=== PATIENT | female | born 1945 | race Hispanic/Latino ===

== ENCOUNTER 2017-11-16 18:27 | Emergency (ER) | payer MEDICARE, MEDICAID ==
--- NOTE | 2017-11-16 21:02 | RAD ---
TWO VIEWS OF THE CHEST: 11/16/17 COMPARISON: 08/26/11. HISTORY: Sore throat, cough and ear pain. FINDINGS: No pneumothorax, pleural fluid, focal consolidation or alveolar edema. Heart and mediastinal contours appear within normal limits. Postsurgical clips are noted in the right upper quadrant. IMPRESSION: No acute findings. POS: [facility]
== END 2017-11-16 21:30 | disposition home or self-care (01) ==
LOC: ERS 18:27
DX: J06.9 Acute upper respiratory infection, unspecified (principal); Z86.718 Personal history of other venous thrombosis and embolism; E11.9 Type 2 diabetes mellitus without complications; I10 Essential (primary) hypertension
CPT/HCPCS: 71046

== ENCOUNTER 2018-11-22 11:20 | Emergency (ER) | payer MEDICARE, OTHER ==
[2018-11-22] MEDS ORDERED: Ketorolac Tromethamine 30 MG/ML VIAL ONE (11:52)
[2018-11-22 12:14] LABS: #Basophils 0.1 thou/uL (0.0-0.2); #Eosinphils 0.3 thou/uL (0.0-0.7); #Lymphocytes 1.7 thou/uL (1.20-3.40); #Monocytes 0.5 thou/uL (0.11-0.59); %Eosinophils 5.5 % (0.0-10.0); %Lymphocytes 30.8 % (21.0-51.0); %Monocytes 8.8 % (0.0-10.0); %Neutrophils 53.9 % (42.0-75.0); Mean Corpuscular Hemoglobin 32.7 pg (27.0-31.0); Mean Corpuscular Volume 93.6 fL (78.0-98.0); Mean Platelet Volume 9.9 fL (7.4-10.4); Platelet Count 143 thou/uL (130-400); RBC Distribution Width 12.7 % (11.5-14.5); Red Blood Cell (RBC) Count 3.67 mill/uL (4.20-5.40); White Blood Cell (WBC) Count 5.5 thou/uL (4.8-10.8)
[2018-11-22 12:34] LABS: ALT (SGPT) 11 U/L (8-55); AST (SGOT) 14 U/L (5-34); Alkaline Phosphatase 81 U/L (40-150); Anion Gap 12 mmol/L (10-20); BUN (Urea Nitrogen) 9 mg/dL (9.8-20.1); Bilirubin, Total 0.4 mg/dL (0.2-1.2); Calc. Creatinine Clearance 0 mL/min (70-130); Carbon Dioxide 25 mmol/L (23-31); Chloride 107 mmol/L (98-107); Estimated GFR-MDRD Greater than 90; Globulin 2.9 g/dL (2.4-3.5); Glucose 142 mg/dL (83-110); Lipase 21 U/L (8-78); Potassium 3.6 mmol/L (3.5-5.1); Protein, Total 6.9 g/dL (6.0-8.3); Sodium 140 mmol/L (136-145)
--- NOTE | 2018-11-22 13:24 | CT ---
CT abdomen and pelvis with IV contrast HISTORY: Left abdominal pain. COMPARISON: 06/23/2015. FINDINGS: Scarring at the left anterolateral lung base is unchanged in appearance. Venous gleason in the left liver lobe is stable. Gallbladder surgically absent. No enlarged lymph nodes or free fluid. Urinary bladder is intact. No bowel inflammation or obstruction apparent. IMPRESSION: Chronic-type findings are stable. No acute abnormalities are demonstrated.
[2018-11-22 13:49] LABS: Bilirubin Negative (Negative); Blood, Urine Negative (Negative); Clarity Clear (Clear); Glucose, Urine (Dipstick) Normal (Negative); Leukocyte Negative Leu/uL (Negative); Nitrite Negative (Negative); Protein, Urine (Dipstick) Negative (Neg-Trace); Urobilinogen Normal mg/dL (Less than 2)
[2018-11-22] MEDS ORDERED: ISOVUE-370 76%-LOCM 1 ML ONE (16:33)
== END 2018-11-22 14:31 | disposition home or self-care (01) ==
LOC: ERS 11:20
DX: M46.90 Unspecified inflammatory spondylopathy, site unspecified (principal); E11.9 Type 2 diabetes mellitus without complications; Z86.718 Personal history of other venous thrombosis and embolism; I10 Essential (primary) hypertension
CPT/HCPCS: 36415; 74177; 80053; 81003; 83690; 85025; 93005; 96374; J1885; Q9966

== ENCOUNTER 2018-12-30 14:08 | Outpatient (CLI) | payer MEDICARE, OTHER ==
--- NOTE | 2018-12-30 16:11 | MMO ---
Bilateral MAMMO Bilat Screen [facility]. CLINICAL HISTORY: Patient is 73 years old and is seen for screening. The patient has no family history of breast cancer. The patient has no personal history of cancer. VIEWS: The views performed were: bilateral craniocaudal with tomosynthesis and bilateral mediolateral oblique with tomosynthesis. FILMS COMPARED: The present examination has been compared to prior imaging studies performed at [facility] on 02/03/2011, 05/08/2014, 05/19/2015 and 06/22/2016. This study has been interpreted with the assistance of computer-aided detection. MAMMOGRAM FINDINGS: The breasts are heterogeneously dense, which could obscure a lesion on mammography. There are stable benign appearing calcifications seen in both breasts. There are no suspicious masses, suspicious calcifications, or new areas of architectural distortion. IMPRESSION: THERE IS NO MAMMOGRAPHIC EVIDENCE OF MALIGNANCY. A ROUTINE FOLLOW-UP MAMMOGRAM IN 1 YEAR IS RECOMMENDED. THE RESULTS OF THIS EXAM WERE SENT TO THE PATIENT. ACR BI-RADS Category 2 - Benign finding MAMMOGRAPHY NOTE: 1. A negative mammogram report should not delay a biopsy if a dominant of clinically suspicious mass is present. 2. Approximately 10% to 15% of breast cancers are not detected by mammography. 3. Adenosis and dense breasts may obscure an underlying neoplasm. Reported by: JADIEL MARTINEZ MD Electonically Signed: [id number]
== END 2018-12-30 14:09 | disposition home or self-care (01) ==
LOC: BICMAMMO 14:08
PROVIDERS: ATTEND Internal Medicine Hospice and Palliative Medicine
DX: Z12.31 Encounter for screening mammogram for malignant neoplasm of breast (principal)
CPT/HCPCS: 77063; 77067

== ENCOUNTER 2019-01-30 18:50 | Emergency (ER) | payer MEDICARE, OTHER ==
[2019-01-30] MEDS ORDERED: Ketorolac Tromethamine 30 MG/ML VIAL ONE (19:34)
--- NOTE | 2019-01-30 19:37 | RAD ---
LUMBAR SPINE: 01/30/19 Three views. HISTORY: Back pain. The lumbar vertebrae maintain height. There is a grade I anterolisthesis at L4-5. Mild degenerative o steophytes. Moderate facet hypertrophy at L4-5 and L5-S1. Slight anterolisthesis at L5-S1 with mild d isc narrowing at this level as well. IMPRESSION: Degenerative changes at L4-5 and L5-S1 with anterolisthesis at both of these levels. POS: [facility]
== END 2019-01-30 19:57 | disposition home or self-care (01) ==
LOC: SCSER 18:50
DX: M54.5 Low back pain (principal); M19.90 Unspecified osteoarthritis, unspecified site; E11.9 Type 2 diabetes mellitus without complications; I10 Essential (primary) hypertension; Z86.718 Personal history of other venous thrombosis and embolism; Z79.899 Other long term (current) drug therapy
CPT/HCPCS: 72100; 96372; J1885

== ENCOUNTER 2019-02-20 10:28 | Outpatient (CLI) | payer MEDICARE, OTHER ==
--- NOTE | 2019-02-20 13:21 | MRI ---
MR the lumbar spine without contrast: 02/20/2019 History: Low back pain, bilateral lower extremity radiculopathy COMPARISON: 08/21/2016 TECHNIQUE: Multiplanar multisequence MR images were obtained of lumbar spine without IV contrast FINDINGS: On the basis of 5 lumbar type vertebral bodies, conus medullaris terminates at [id number] level. Sagittal STIR imaging demonstrates no focal area of osseous marrow edema. Anterolisthesis of L4 on L5 noted measuring 5 mm, not significantly changed. T12-L1:Mild bilateral facet hypertrophy, right greater than left. No significant central canal or ruby ral foraminal stenosis. There is minimal disc bulge. L1-2:Intervertebral disc height and signal intensity is grossly unremarkable. Mild bilateral facet hy pertrophy. No significant central canal or neural foraminal stenosis. L2-3:There is a small foraminal protrusion on the right. Mild bilateral facet hypertrophy, right grea ter than left. No significant central canal or neural foraminal stenosis. L3-4:Mild bilateral facet hypertrophy with no significant central canal or neural foraminal stenosis. L4-5:Disc space narrowing with disc desiccation and mild disc bulge. Small left paracentral annular t ear. No significant central canal stenosis. Moderate right neural foraminal stenosis. No significant left neural foraminal stenosis. L5-S1:There is disc space narrowing and disc desiccation with bilateral facet hypertrophy and hypertr ophy of the ligamentum flavum. No significant central canal or neural foraminal stenosis. The imaged retroperitoneal structures appear grossly unremarkable. When compared to the prior examination, the facet hypertrophy and associated neural foraminal stenos is at L4-5 has slightly worsened. IMPRESSION: Lumbar spine degenerative change as detailed above.
== END 2019-02-20 10:29 | disposition home or self-care (01) ==
LOC: BICMRI 10:28
PROVIDERS: ATTEND Physical Medicine & Rehabilitation
DX: M54.5 Low back pain (principal); M47.816 Spondylosis without myelopathy or radiculopathy, lumbar region
CPT/HCPCS: 72148

== ENCOUNTER 2019-03-21 12:54 | Outpatient (CLI) | payer MEDICARE, MEDICAID ==
--- NOTE | 2019-03-21 13:50 | CT ---
CT paranasal sinuses noncontrast: DATE: 03/21/2019 HISTORY: 73-year-old female with recurrent sinusitis. COMPARISON: 03/18/2013 FINDINGS: Bilateral frontal sinuses: Hypoplastic. Clear. Bilateral frontal recesses: Clear. Bilateral ethmoid air cells: Clear. Sphenoid sinus: Mild polypoid mucosal thickening at the roof and left lateral aspect of the left sphe noid air cell. This is slightly thicker than it was on 03/18/2013. It results in approximately 10-15% opacification of the left sphenoid air cell. This is the only interval change. Bilateral sphen oethmoidal recesses are patent and clear. Bilateral maxillary sinuses: Minimal mucosal thickening at the floor of the right. Otherwise bilatera lly clear. Bilateral ostiomeatal units: Patent and clear. Nasal cavity: Septal deviation to the left, with spur impinging on the vertical process of the left i nferior meatus. Otherwise clear. Unerupted, impacted malrotated, malpositioned right upper posterior maxillary tooth. IMPRESSION: 1. Mild chronic mucosal thickening in the left sphenoid air cell. 2. Otherwise, the paranasal sinuses are clear. 3. No evidence of obstructive pathology in the paranasal sinuses.
== END 2019-03-21 12:55 | disposition home or self-care (01) ==
LOC: BICCT 12:54
PROVIDERS: ATTEND Family Medicine
DX: J01.90 Acute sinusitis, unspecified (principal)

== ENCOUNTER 2020-02-27 08:13 | Outpatient (CLI) | payer MEDICARE, MEDICAID ==
--- NOTE | 2020-02-27 13:23 | NM ---
Nuclear medicine gastric emptying scan: 02/27/2020 HISTORY: 74-year-old female with nausea and regurgitation TECHNIQUE: 2.1 mCi technetium 99m sulfur colloid served in scrambled egg meal. Scintigraphic images of abdomen anterior view obtained periodically. FINDINGS: Percentage emptying by time: 34 minutes: 10% 62 minutes: 31% 124 minutes: 85% 185 minutes: 100% IMPRESSION: Normal
== END 2020-02-27 08:14 | disposition home or self-care (01) ==
LOC: NM 08:13
PROVIDERS: ATTEND Internal Medicine Gastroenterology
DX: R11.10 Vomiting, unspecified (principal)
CPT/HCPCS: 78264; A9541

== ENCOUNTER 2020-04-26 08:16 | Outpatient (CLI) | payer MEDICARE, MEDICAID ==
--- NOTE | 2020-04-26 08:59 | ULT ---
Renal sonogram Renal artery Doppler evaluation with spectral analysis CLINICAL INDICATION: Hematuria. COMPARISON: None. FINDINGS: Right kidney: There is no evidence of a renal mass, renal calculus, or hydronephrosis seen. No renal cortical thinning is present. The right kidney measures 8.7 cm x 3.9 cm. Left kidney: There is no evidence of a renal mass, renal calculus, or hydronephrosis. No renal cortic al thinning is present.The left kidney measures 9.8 cm x 4.7 cm. Urinary bladder: Incompletely distended but otherwise grossly within normal limits. Urinary bladder v olume is 56.4 mL. Renal Doppler evaluation with spectral analysis: Peak systolic velocity in the abdominal aorta is 88.6 cm/s with the peak systolic velocity in the rig ht renal artery of 99.8 cm/s and on the left of 167 cm/s. The right renal artery to aorta ratio is 1.13 and left renal artery to aorta ratio is 1.88. Normal re nal artery to aorta ratio is less than 3. Resistive index in the right renal arcuate artery 0.65 and resistive index left renal arcuate artery is 0.66. Normal resistive indices are less than 0.7. IMPRESSION: 1. Normal-appearing bilateral kidneys without hydronephrosis or renal cortical thinning. 2. Normal renal artery to aorta ratios as well as normal resistive indices in the arcuate arteries bi laterally.
== END 2020-04-26 08:17 | disposition home or self-care (01) ==
LOC: BICULT 08:16
PROVIDERS: ATTEND Hospitalist
DX: R31.9 Hematuria, unspecified (principal); R82.81 Pyuria
CPT/HCPCS: 76770; 93975